=== PATIENT | male | born 1975 | race Caucasian/White ===

== ENCOUNTER 2025-04-23 21:57 | Emergency (ER) | payer BC ==
[2025-04-24] MEDS: Diphtheria,Pertussis(Acell),Tetanus Vaccine 0.5 ML Syringe IM ONE (01:15)
== END 2025-04-24 02:59 | disposition home or self-care (01) ==
LOC: JP.ED 21:57
DX: S62.662B Nondisplaced fracture of distal phalanx of right middle finger, initial encounter for open fracture (principal); Z23 Encounter for immunization; W20.8XXA Other cause of strike by thrown, projected or falling object, initial encounter; Y93.89 Activity, other specified
CPT/HCPCS: 11760; 73140; 90471; 90715; 99283; A9270; J2003; 12001